=== PATIENT | male | born 1950 | race Caucasian/White ===

== ENCOUNTER 2020-03-21 08:39 | Outpatient (CLI) | payer MEDICARE, SELFPAY ==
[2020-03-21 09:08] LABS: Hematocrit 40.3 % (37.0-46.0); Hemoglobin 12.7 g/dL (12.4-15.3); Immature Platelet Fraction Pct 4.2 % (1.0-7.0); Mean Corpuscular HGB Conc 31.5 g/dL (32.0-36.0); Mean Corpuscular Hemoglobin 27.1 pg (27.0-31.0); Mean Corpuscular Volume 85.9 fL (78.0-102.0); Mean Platelet Volume 11.6 fl (8.7-11.0); Platelet Count Result 118 K/mm3 (150-420); Red Blood Count 4.69 M/mm3 (4.70-6.10)
[2020-03-21 09:15] LABS: White Blood Count 31.7 K/mm3 (4.8-10.8)
[2020-03-21 09:20] LABS: Add Urine Microscopic? YES; Appearance Urine Clear (Clear); Bilirubin Urine Negative (Negative); Blood Urine Negative (Negative); Color Urine Yellow (Yellow); Glucose Urine UA 2+ (Negative); Ketones Urine Negative (Negative); Leukocyte Esterase Ur Negative (Negative); Nitrate Urine Negative (Negative); Protein Urine 1+ (Negative); Specific Grav Ur 1.025 (1.010-1.020)
[2020-03-21 09:29] LABS: Bacteria Urine Trace /hpf; RBC Urine 0-2 /hpf (0-2); Squamous Epithelial Cell Urine Few /hpf (Few); WBC Urine 0-3 /hpf (0-3)
[2020-03-21 09:35] LABS: Hemoglobin A1C 7.8 % (<5.7)
[2020-03-21 10:03] LABS: Total Cells Counted 100
[2020-03-21 10:06] LABS: Band Neutrophils Percent 0 % (0-6); Basophils Absolute Manual 0.31 K/mm3 (0-0.1); Basophils Percent Manual 1 % (0-1); Eosinophils Absolute Manual 0.31 K/mm3 (0.02-0.5); Eosinophils Percent Manual 1 % (1-6); Lymphocytes Absolute Manual 25.04 K/mm3 (1.1-4.5); Lymphocytes Percent Manual 79 % (18-44); Monocytes Absolute Manual 0.63 K/mm3 (0.1-0.90); Monocytes Percent Manual 2 % (3-9); Neutrophils Absolute Manual 5.38 K/mm3 (1.3-6.7); Neutrophils Percent Manual 17 % (46-73); Platelet Estimate Decreased (Adequate); Smudge Cells MODERATE
[2020-03-21 10:08] LABS: Alanine Aminotransferase 38 U/L (16-63); Albumin Level 4.1 g/dL (3.4-5.0); Alkaline Phosphatase 80 U/L (46-116); Anion Gap 10 mmol/L (8-16); Aspartate Amino Transferase 31 U/L (15-37); Bilirubin,Total 0.4 mg/dL (0.00-1.00); Blood Urea Nitrogen 18 mg/dL (7-18); Calcium 9.1 mg/dL (8.5-10.1); Carbon Dioxide 27 mmol/L (21-32); Chloride 103 mmol/L (98-108); Estimated Glomerular Filt Rate > 60; Glucose 182 mg/dL (70-99); Osmolality Calculated 296 mOsm/kg (285-295); Potassium 4.4 mmol/L (3.5-5.1); Sodium 140 mmol/L (136-145); Total Protein 7.2 g/dL (6.4-8.2)
== END 2020-03-21 08:40 | disposition home or self-care (01) ==
PROVIDERS: PCP Internal Medicine; Visit Provider Internal Medicine Hematology & Oncology
DX: C91.10 Chronic lymphocytic leukemia of B-cell type not having achieved remission (principal); E11.65 Type 2 diabetes mellitus with hyperglycemia; I10 Essential (primary) hypertension; R31.9 Hematuria, unspecified
CPT/HCPCS: 36415; 80053; 81001; 83036; 85025; 85055; 87086

== ENCOUNTER 2020-10-10 08:37 | Outpatient (CLI) | payer MEDICARE, SELFPAY ==
[2020-10-10 08:51] LABS: Add Urine Microscopic? YES; Appearance Urine Clear (Clear); Bilirubin Urine Negative (Negative); Blood Urine Negative (Negative); Color Urine Yellow (Yellow); Glucose Urine UA Negative (Negative); Ketones Urine Negative (Negative); Leukocyte Esterase Ur Negative (Negative); Nitrate Urine Negative (Negative); Protein Urine Trace (Negative)
[2020-10-10 08:52] LABS: Hematocrit 40.2 % (37.0-46.0); Hemoglobin 12.7 g/dL (12.4-15.3); Immature Platelet Fraction Pct 5.7 % (1.0-7.0); Mean Corpuscular HGB Conc 31.6 g/dL (32.0-36.0); Mean Corpuscular Volume 85.5 fL (78.0-102.0); Mean Platelet Volume 11.1 fl (8.7-11.0); Platelet Count Result 126 K/mm3 (150-420); Red Cell Distribution Width 14.7 % (11.6-14.4)
[2020-10-10 09:14] LABS: Bacteria Urine Trace /hpf; RBC Urine 0-2 /hpf (0-2); Squamous Epithelial Cell Urine Rare /hpf (Few); WBC Urine 0-3 /hpf (0-3)
[2020-10-10 09:21] LABS: Creatinine Urine 138.91 mg/dL (40-278)
[2020-10-10 09:23] LABS: Microalbumin Urine Random 137.6 mg/L
[2020-10-10 09:29] LABS: White Blood Count 57.2 K/mm3 (4.8-10.8)
[2020-10-10 09:30] LABS: Band Neutrophils Percent 0 % (0-6); Basophils Percent Manual 0 % (0-1); Eosinophils Percent Manual 0 % (1-6); Lymphocytes Percent Manual 89 % (18-44); Monocytes Absolute Manual 1.71 K/mm3 (0.1-0.90); Monocytes Percent Manual 3 % (3-9); Neutrophils Absolute Manual 4.57 K/mm3 (1.3-6.7); Neutrophils Percent Manual 8 % (46-73); Platelet Estimate Decreased (Adequate); Smudge Cells PRESENT; Total Cells Counted 100
[2020-10-10 09:41] LABS: Alanine Aminotransferase 37 U/L (16-63); Alkaline Phosphatase 75 U/L (46-116); Anion Gap 8 mmol/L (8-16); Aspartate Amino Transferase 30 U/L (15-37); Bilirubin,Total 0.6 mg/dL (0.00-1.00); Blood Urea Nitrogen 22 mg/dL (7-18); Calcium 8.8 mg/dL (8.5-10.1); Carbon Dioxide 27 mmol/L (21-32); Chloride 102 mmol/L (98-108); Cholesterol 114 mg/dL (0-200); Creatine Kinase 85 U/L (39-308); Estimated Glomerular Filt Rate > 60; Glucose 97 mg/dL (70-99); HDL Direct 22 mg/dL (40-60); LDL Cholesterol Calculated 39 mg/dL (<130); Lactate Dehydrogenase 143 U/L (85-227); Osmolality Calculated 287 mOsm/kg (285-295); Sodium 137 mmol/L (136-145); Total Protein 7.2 g/dL (6.4-8.2); Triglycerides 266 mg/dL (0-150)
[2020-10-10 10:06] LABS: Prostate Specific Antigen 0.6 ng/mL (< OR = 4.0)
== END 2020-10-10 08:38 | disposition home or self-care (01) ==
LOC: CHSLAB 08:39
PROVIDERS: PCP Internal Medicine; Visit Provider Internal Medicine Hematology & Oncology
DX: C91.10 Chronic lymphocytic leukemia of B-cell type not having achieved remission (principal); E11.65 Type 2 diabetes mellitus with hyperglycemia; I10 Essential (primary) hypertension; E78.2 Mixed hyperlipidemia; Z12.5 Encounter for screening for malignant neoplasm of prostate
CPT/HCPCS: 36415; 80053; 80061; 81001; 82043; 82550; 83036; 83615; 84153; 85025; 85055; G0103

== ENCOUNTER 2021-06-13 18:24 | Inpatient (IN) | payer MEDICARE, SELFPAY ==
[2021-06-13] VITALS (8 sets, daily range): BP systolic 114–136; BP diastolic 41–61; PULSE 72–81; RESP 20–24; TEMP 36.7–38.9; O2SAT 82–97
--- NOTE | ~2021-06-13 | XR_ITS ---
EXAMINATION: XR chest ET placement EXAM DATE: 06/17/2021 22:12 INDICATION: Endotracheal tube placement endotracheal tube placement. TECHNIQUE: Portable AP frontal chest x-ray was obtained. Comparison is made to prior examination from 06/16/2021 FINDINGS: There is an endotracheal tube about 3 or 4 cm above the niko but mildly eccentrically pos itioned over the tracheal air column; recommend confirming endotracheal versus esophageal position cl inically. Gas was present in the stomach on prior study, there does appear to be more on this image. I discussed this with Brendan Anne MD at 06/17/2021 22:21 LAUNDRY ROOM ATTENDANT. Diffuse airspace disease again noted, lungs appear better aerated but this could be technical. There are sternotomy wires. No pneumothorax. The cardiomediastinal silhouette is prominent but magnified on this AP technique. IMPRESSION: 1. Recommend confirming endotracheal versus esophageal intubation clinically. 2. Diffuse pneumonia Reviewed, dictated and finalized at location A. DRY ROOM ATTENDANT
--- NOTE | ~2021-06-13 | XR_ITS ---
EXAMINATION: XR chest ET placement EXAM DATE: 06/17/2021 23:03 INDICATION: ET tube replaced. TECHNIQUE: Portable AP frontal chest x-ray was obtained. Comparison is made to prior examination from earlier same day. FINDINGS: Endotracheal tube at the thoracic inlet. I called emergency room and discussed position wit h nurse, reportedly they are attempting again. Tracheal air column narrowed or less well-defined on this image. Sternotomy wires. Diffuse airspace d isease again noted. No pneumothorax. IMPRESSION: Abnormally positioned endotracheal tube at thoracic inlet. Reviewed, dictated and finalized at location A. HEADER
--- NOTE | ~2021-06-13 | CT_ITS ---
EXAMINATION:CT diagnostic chest wo con DATE: 06/13/2021 19:36 INDICATION: Shortness of breath. TECHNIQUE: Computed tomography (CT) of the chest was performed without intravenous contrast. Automate d exposure control and iterative reconstruction technique were employed. The dose-length product (DLP ) was 526.04 mGy-cm. COMPARISON: Chest CT 03/04/2019 FINDINGS: There are patchy groundglass opacities and crazy paving in all lobes. There is a trace left pleural effusion. The heart size is normal. There are coronary artery calcifications. There are kasper ges of coronary artery bypass grafting. Main pulmonary artery is enlarged, consistent with pulmonary arterial hypertension. Calcified left hilar and mediastinal lymph nodes are consistent with old granu lomatous disease. There is mild mediastinal lymphadenopathy, likely reactive. The liver demonstrates hypertrophy of left lateral segment. There are changes of cholecystectomy. There is moderate splenome violette. There is mild periportal lymphadenopathy. There are bridging endplate osteophytes at multiple l evels in the spine, consistent with diffuse idiopathic skeletal hyperostosis (DISH). IMPRESSION: 1. Diffuse lung disease, consistent with COVID-19 pneumonia. 2. Chronic moderate splenomegaly. 3. Hypertrophy of left lateral segment of the liver. This finding may be a normal variant or may be s een with cirrhosis. 4. Mild mediastinal and periportal lymphadenopathy, likely reactive. Reviewed, dictated and finalized at location A. RNED GOODS INSPECTOR IMPRESSION: 1. Diffuse lung disease, consistent with COVID-19 pneumonia. 2. Chronic moderate splenomegaly. 3. Hypertrophy of left lateral segment of the liver. This finding may be a norm al variant or may be seen with cirrhosis. 4. Mild mediastinal and periportal lymphadenopathy, likely reactive.
--- NOTE | ~2021-06-13 | CT_ITS ---
EXAMINATION: CTA chest PE protocol DATE: 06/16/2021 12:42 INDICATION: Shortness of breath. TECHNIQUE: Computed tomography angiography (CTA) of the chest was performed with 100 mL Omnipaque-350 intravenous contrast timed to evaluate the pulmonary arteries. Coronal maximum intensity projection 3D-reconstructions were created by the technologist. Automated exposure control and iterative reconst ruction technique were employed. The dose-length product was 528.39 mGy-cm. COMPARISON: Chest CT 06/13/2021 FINDINGS: There are patchy groundglass opacities and crazy paving in the upper lobes and right middle lobe. There are extensive groundglass opacities, crazy paving, and small airspace opacities in the l ower lobes. Calcified left lung nodules and calcified left hilar lymph nodes are consistent with old granulomatous disease. There are trace pleural effusions. There is left atrial enlargement of the hea rt. There are coronary artery calcifications. There are calcifications of the aortic valve. No perica rdial effusion. There are changes of cholecystectomy. Calcifications in the spleen are consistent wit h old granulomatous disease. There is mild mediastinal, right hilar, and periportal lymphadenopathy. There is moderate splenomegaly. There is hypertrophy of left hepatic lobe. There are bridging endplat e osteophytes at multiple levels in the spine, consistent with diffuse idiopathic skeletal hyperostos is (DISH). IMPRESSION: 1. No pulmonary embolus. 2. Diffuse lung disease with worsening from 06/13/2021, consistent with COVID-19 pneumonia. 3. Chronic moderate splenomegaly. 4. Hypertrophy of left lateral segment of the liver. This finding may be a normal variant or may be s een with cirrhosis. 5. Mild mediastinal, right hilar, and periportal lymphadenopathy, likely reactive. Reviewed, dictated and finalized at location A. CAR MAKE READY MECHANIC IMPRESSION: 1. No pulmonary embolus. 2. Diffuse lung disease with worsening from 06/13/2021, consistent with COVID-19 pneumonia. 3. Chronic moderate splenomegaly. 4. Hypertrophy of left lateral segment of the liver. This finding may be a norm al variant or may be seen with cirrhosis. 5. Mild mediastinal, right hilar, and periportal lymphadenopathy, likely reacti ve.
--- NOTE | ~2021-06-13 | XR_ITS ---
EXAMINATION: XR chest 1V portable DATE: 06/16/2021 01:26 INDICATION: Increasing shortness of breath. COVID-19 positive. TECHNIQUE: A single frontal view of the chest was obtained. COMPARISON: Chest CT 06/13/2021, chest 2 views 01/14/2008 FINDINGS: There are airspace opacities throughout the lungs bilaterally. No pleural effusion or pneum othorax. The heart size is normal. Median sternotomy wires and mediastinal surgical clips are seen, l ikely from prior coronary artery bypass grafting. Surgical clips in the right upper quadrant are like ly from cholecystectomy. IMPRESSION: 1. Diffuse lung disease, consistent with COVID-19 pneumonia. Reviewed, dictated and finalized at location A. APPLICATION ENGINEER
--- NOTE | 2021-06-13 18:40 | ECG_ITS ---
Measurements Intervals [place] Rate: 81 P: 19 CO: 221 QRS: 1 QRSD: 97 T: 70 QT: 359 QTc: 418 Interpretive Statements SINUS RHYTHM WITH FIRST DEGREE AV BLOCK LEFT VENTRICULAR HYPERTROPHY WITH ST-T CHANGE INFERIOR INFARCT, AGE INDETERMINATE BASELINE ARTIFACT- I, II, III, AVR, AVL, AVF, V1-V3 ABNORMAL ECG Electronically Signed On 06-13-2021 20:33:26 RETURNER by Unruly Alvarez D.O.
--- NOTE | 2021-06-13 18:45 | PC.NURSE ---
Pt placed on 3L o2 per NC.
[2021-06-13] MEDS: SODIUM CHLORIDE 0.9% IV 1,000 ML 150 ML IV CONT (18:57)
[2021-06-13] MEDS: DEXAMETHASONE SOD PHOS INJ 4 MG/ML VIAL IV PUSH (18:59)
[2021-06-13] MEDS: ACETAMINOPHEN 500 MG TABLET 1000 MG PO (19:02)
[2021-06-13] MEDS: UMECLIDINIUM BROMIDE 62.5 MCG ELLIPTA 1 PUFF INHALATION (19:03)
[2021-06-13] MEDS: ALBUTEROL SULFATE (*SP) INHALER 2 PUFF INHALATION (19:04)
[2021-06-13 19:26] LABS: Base Excess ABG -0.2 mmol/L (0-2); HCO3 ABG 21.8 mmol/L (23-29); Oxygen Content ABG 15.8 %vol (16.0-22.0); Oxygen Saturation ABG 94.1 % (95-97); Oxyhemoglobin 93.9 % (94-100); PCO2 ABG 27.9 mmHg (35-45); PO2 ABG 69.8 mmHg (75-85); Total Hemoglobin 11.9 g/dL (12.0-18.0); pH ABG 7.51 (7.35-7.45)
[2021-06-13 19:27] LABS: Device ROOM AIR; Modified Allen's Test Pass; Site Drawn RIGHT RADIAL
[2021-06-13 19:28] LABS: Hematocrit 36.2 % (37.0-46.0); Hemoglobin 11.2 g/dL (12.4-15.3); Immature Platelet Fraction Pct 5.9 % (1.0-7.0); Mean Corpuscular HGB Conc 30.9 g/dL (32.0-36.0); Mean Corpuscular Hemoglobin 25.2 pg (27.0-31.0); Mean Corpuscular Volume 81.3 fL (78.0-102.0); Platelet Count Result 123 K/mm3 (150-420); Red Blood Count 4.45 M/mm3 (4.70-6.10); Red Cell Distribution Width 15.6 % (11.6-14.4)
[2021-06-13 19:45] LABS: Alanine Aminotransferase 37 U/L (16-63); Albumin Level 2.8 g/dL (3.4-5.0); Alkaline Phosphatase 60 U/L (46-116); Anion Gap 11 mmol/L (8-16); Aspartate Amino Transferase 75 U/L (15-37); Bilirubin,Total 0.7 mg/dL (0.00-1.00); Blood Urea Nitrogen 23 mg/dL (7-18); Calcium 7.7 mg/dL (8.5-10.1); Carbon Dioxide 24 mmol/L (21-32); Chloride 96 mmol/L (98-108); Estimated CRCL calculation 54 ml/min; Estimated Glomerular Filt Rate > 60; Glucose 90 mg/dL (70-99); Osmolality Calculated 275 mOsm/kg (285-295); Potassium 4.5 mmol/L (3.5-5.1); Sodium 131 mmol/L (136-145); Total Protein 6.5 g/dL (6.4-8.2); Troponin I 20.4 ng/L (0.00-60.4)
[2021-06-13 20:04] LABS: Atypical Lymphocytes Present; Band Neutrophils Percent 0 % (0-6); Basophils Percent Manual 0 % (0-1); Eosinophils Percent Manual 0 % (1-6); Lymphocytes Absolute Manual 71.38 K/mm3 (1.1-4.5); Lymphocytes Percent Manual 86 % (18-44); Monocytes Absolute Manual 1.66 K/mm3 (0.1-0.90); Monocytes Percent Manual 2 % (3-9); Neutrophils Absolute Manual 9.96 K/mm3 (1.3-6.7); Neutrophils Percent Manual 12 % (46-73); Smudge Cells MANY; Total Cells Counted 100
[2021-06-13 20:05] LABS: Platelet Estimate Adequate (Adequate)
[2021-06-13] MEDS: AZITHROMYCIN 250 MG TABLET 500 MG PO (20:17)
--- NOTE | 2021-06-13 20:47 | ED.SOB ---
HPI - SOB/Dyspnea General Chief Complaint: Shortness of Breath/Dyspnea Stated Complaint: shortess of breath post COVID Source: patient and RN notes reviewed Mode of arrival: ambulatory Limitations: no limitations History of Present Illness MD elicited complaint: shortness of breath Pertinent past history: other (recent covid-19 diagnosis) Onset (ago): day(s) (1) Context: other (pt is being worked up for Leukemia) Timing: constant Severity: moderate Exacerbating factors: nothing Relieving factors: oxygen and bronchodilators Known history of: diabetes Associated symptoms: fever Treatment prior to arrival: none Related Data Home Medications Medication Instructions Recorded Confirmed insulin detemir U-100 [Levemir 130 unit SUBCUT HS 06/13/21 06/13/21 U-100 Insulin] insulin lispro See Rx Instructions .ROUTE .COMPLEX 06/13/21 06/13/21 metformin 500 mg PO DAILY 06/13/21 06/13/21 metoprolol tartrate 50 mg PO DAILY 06/13/21 06/13/21 pravastatin 20 mg PO DAILY 06/13/21 06/13/21 sildenafil (pulm.hypertension) 20 mg PO DAILY 06/13/21 06/13/21 Allergies Allergy/AdvReac Type Severity Reaction Status Date / Time No Known Allergies Allergy Verified 06/13/21 18:51 Review of Systems Review of Systems: All systems reviewed & are unremarkable except as noted in HPI and below Respiratory: Respiratory: Reports dyspnea PMFSH Past Medical History Medical History Community acquired pneumonia Diabetes mellitus Leukemia Exam Const: General: no acute distress Nutritional Appearance: well nourished Orientation/consciousness: patient oriented x3 HENMT: Head: normal to inspection Ears: external ears normal and TM's normal bilaterally General nose exam: Normal external nose present and Normal nares present Face and sinus: normal facial exam Mouth: Yes moist mucous membranes Eyes: Conjunctivae: conjunctivae normal Pupils: Equal, round and reactive pupils present EOM: EOMs intact bilaterally Neck: Neck: normal visual inspection and no lymphadenopathy Chest: Chest palpation & inspection: normal inspection of the chest Resp: Effort & Inspection: labored, retractions, tachypneic and uses accessory muscles Auscultation: crackles Cardio: Rate: regular rate Rhythm: regular rhythm GI: GI Palp: Yes Soft to palpation and No Tenderness to palpation present (GI) Percussion: Yes normal to percussion : General: Yes no CVA tenderness Male General Exam: Yes normal external exam Testes: Testes normal Back/Spine/Pelvis: Back: no CVA tenderness Skin: General skin exam: normal color Neuro: General: patient oriented x3, moves all extremities, no meningeal signs, no focal motor deficits and CN's II-XI intact bilaterally Extrem: General: normal to inspection and no pedal edema Psych: Mental Status: mental status grossly normal Affect: normal affect Attitude: cooperative Thought content: Yes Normal thought content present Course Course Emergency Course: Pt sxs were improved. Labs and imaging were d/w the patient. He refused transfer to higher level of care ( with his Leukemia and DM) and wanted to be admitted here. Reevaluation(s) Reevaluation #1: mild resp distress only. Date: 06/13/21 Time: 19:23 Vital Signs Vital signs: Vital Signs Temperature 38.9 C H 06/13/21 18:39 Pulse Rate 79 06/13/21 18:39 Respiratory Rate 22 H 06/13/21 18:39 Blood Pressure 136/55 L 06/13/21 18:39 Pulse Oximetry 82 L 06/13/21 18:39 Temperature 37.1 C 06/13/21 21:16 Pulse Rate 74 06/13/21 21:16 Respiratory Rate 22 H 06/13/21 21:16 Blood Pressure 117/41 L 06/13/21 21:16 Pulse Oximetry 95 06/13/21 21:16 MDM - SOB/Dyspnea Lab Data Result diagrams: 06/13/21 19:22 06/13/21 19:22 Labs: Lab Results 06/13/21 06/13/21 06/13/21 Range/Units 19:22 19:22 19:22 WBC 83.0 H* (4.8-10.8) K/mm3 RBC 4.45 L (4.70-6.10) M/mm
--- NOTE | 2021-06-13 20:53 | PC.NURSE ---
Patient states seeing Dr. Karimi at [facility] for r/o leukemia. suggested transfer for further observation from a Hem-Onc physician but patient declined at this time at requested to be admitted here for treatment.
--- NOTE | 2021-06-13 22:00 | ADMGEN ---
This patient, Manuel Kumar, was admitted to 2nd Floor Room 208-2. Patient oriented to hospital policies and general routines including ID bracelet, bed and alarms, visiting hours, pain management, procedures, bathroom and other care routines, personal items, smoking policy, room service/diet, and visiting hours. Information on how to activate the Rapid Response Team has been discussed. Patient are encouraged to report perceived risks to care and to ask questions if they do not understand what they are told or what they should do.
[2021-06-14] VITALS (8 sets, daily range): BP systolic 108–124; BP diastolic 53–74; PULSE 74–80; RESP 18–20; TEMP 35.9–36.4; O2SAT 90–95; BMI 27.2
[2021-06-14] MEDS: SODIUM CHLORIDE 0.9% IV 1,000 ML 75 ML IV CONT (00:45)
[2021-06-14] MEDS: DEXAMETHASONE SOD PHOS INJ 4 MG/ML VIAL IV PUSH ×4 (00:45→17:13)
[2021-06-14] MEDS: ALBUTEROL SULFATE (*SP) INHALER 2 PUFF INHALATION ×5 (05:31→20:24)
[2021-06-14 06:18] LABS: Hematocrit 35.4 % (37.0-46.0); Mean Corpuscular HGB Conc 31.1 g/dL (32.0-36.0); Mean Corpuscular Hemoglobin 25.6 pg (27.0-31.0); Mean Corpuscular Volume 82.3 fL (78.0-102.0); Mean Platelet Volume 10.8 fl (8.7-11.0); Platelet Count Result 101 K/mm3 (150-420); Red Cell Distribution Width 15.7 % (11.6-14.4)
[2021-06-14 06:20] LABS: Add Urine Microscopic? YES; Appearance Urine Clear (Clear); Bilirubin Urine Negative (Negative); Blood Urine Negative (Negative); Color Urine Light Yellow (Yellow); Glucose Urine UA 1+ (Negative); Ketones Urine 1+ (Negative); Leukocyte Esterase Ur Negative (Negative); Nitrate Urine Negative (Negative); Protein Urine Trace (Negative); Specific Grav Ur 1.025 (1.010-1.020); Urobilinogen Urine 0.2 mg/dL (0.2-1.0)
[2021-06-14 06:25] LABS: Bacteria Urine Trace /hpf; RBC Urine None seen /hpf (0-2); WBC Urine None seen /hpf (0-3)
[2021-06-14 06:36] LABS: White Blood Count 65.5 K/mm3 (4.8-10.8)
[2021-06-14 06:39] LABS: Alanine Aminotransferase 34 U/L (16-63); Albumin Level 2.5 g/dL (3.4-5.0); Alkaline Phosphatase 56 U/L (46-116); Anion Gap 12 mmol/L (8-16); Aspartate Amino Transferase 62 U/L (15-37); Bilirubin,Total 0.6 mg/dL (0.00-1.00); Blood Urea Nitrogen 23 mg/dL (7-18); Calcium 7.7 mg/dL (8.5-10.1); Carbon Dioxide 22 mmol/L (21-32); Chloride 98 mmol/L (98-108); Estimated CRCL calculation 54 ml/min; Estimated Glomerular Filt Rate > 60; Glucose 249 mg/dL (70-99); Osmolality Calculated 285 mOsm/kg (285-295); Potassium 4.8 mmol/L (3.5-5.1); Sodium 132 mmol/L (136-145); Total Protein 6.1 g/dL (6.4-8.2)
[2021-06-14 06:47] LABS: Band Neutrophils Percent 0 % (0-6); Lymphocytes Absolute Manual 55.67 K/mm3 (1.1-4.5); Lymphocytes Percent Manual 85 % (18-44); Monocytes Absolute Manual 1.31 K/mm3 (0.1-0.90); Monocytes Percent Manual 2 % (3-9); Neutrophils Absolute Manual 8.51 K/mm3 (1.3-6.7); Neutrophils Percent Manual 13 % (46-73); Smudge Cells MODERATE; Total Cells Counted 100
[2021-06-14 08:05] LABS: Glucose Point of Care 282 mg/dl (65-105)
[2021-06-14] MEDS: PRAVASTATIN SODIUM 20 MG TABLET PO (09:06)
[2021-06-14] MEDS: metFORMIN HCL XR 500 MG TAB.SR.24H PO (09:06)
[2021-06-14] MEDS: METOPROLOL TARTRATE 50 MG TAB PO (09:06)
[2021-06-14] MEDS: DOCUSATE SODIUM 100 MG CAPSULE PO ×2 (09:06→17:11)
[2021-06-14] MEDS: UMECLIDINIUM BROMIDE 62.5 MCG ELLIPTA 1 PUFF INHALATION (09:07)
--- NOTE | 2021-06-14 10:28 | PM.IMHP ---
H&P: HPI History of Present Illness Date/Time: 06/14/21 10:28 this is a 70-year-old male who presented to emergency department with complaints of shortness of breath, fatigue, fever, productive cough and Covid positive. Patient has a past medical history of CAP, diabetes and leukemia. 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 At that time he bought an at home test for Covid which was positive. Patient notes that he stayed at home and cared for himself with [id number] medication. Patient notes that his situation did not improve he notes that his shortness of breath worsened and at that time he came to our emergency department. Patient has not been vaccinated. WBCs 83.0 hemoglobin 11.2 hematocrit 36.2 platelets 123, pH 7.51 CO2 27.9 O2 69.8 bicarb 21.8, sodium 131 potassium 4.5 BUN 23 creatinine 1.17 glucose 90, lactic acid 2.0, AST 75 ALT 37 total bili 0.7, troponin 20.4, urine with protein glucose ketone and bacteria, chest x-ray indicates COVID pneumonia EKG sinus rhythm with first-degree AV block heart rate of 81. The patient denies , CP, palpitation, extremity numbness, lightheadedness, dizziness, constipation, diarrhea, chills, or fever. Chief Complaint: Shortness of breath, fatigue, uncontrollable productive cough, fever Review of Systems Review of Systems: A 14 organ system Review of Systems was performed and pertinent positives included in the HPI, otherwise remaining ROS is negative. [facility] Past Medical History Medical History Community acquired pneumonia Diabetes mellitus Leukemia Family History Family History (Updated 06/14/21 @ 02:54 by Alma Steele RN) Mother Heart disease Cerebrovascular accident Father Heart disease Social History Social History Smoking status: Never smoker Second hand tobacco smoke exposure: No Alcohol intake: never Substance use: never Substance use type: does not use Spiritual care concerns: No Meds Home Medications and Allergies Home Medications Medication Instructions Recorded Confirmed Type insulin detemir U-100 [Levemir 130 unit SUBCUT HS 06/13/21 06/13/21 History U-100 Insulin] insulin lispro See Rx Instructions .ROUTE .COMPLEX 06/13/21 06/13/21 History metformin 500 mg PO DAILY 06/13/21 06/13/21 History metoprolol tartrate 50 mg PO DAILY 06/13/21 06/13/21 History pravastatin 20 mg PO DAILY 06/13/21 06/13/21 History sildenafil (pulm.hypertension) 20 mg PO DAILY 06/13/21 06/13/21 History Allergies Allergy/AdvReac Type Severity Reaction Status Date / Time No Known Allergies Allergy Verified 06/13/21 18:51 Vital Signs Vital Signs - 24 hr 06/13/21 18:39 06/13/21 19:04 06/13/21 19:06 Temperature 102.0 F H Pulse Rate 79 74 81 Respiratory Rate 22 H 22 H 20 Blood Pressure 136/55 L Pulse Oximetry 82 L 95 95 06/13/21 20:16 06/13/21 20:45 06/13/21 21:16 Temperature 99.8 F H 99.2 F 98.7 F Pulse Rate 72 74 Respiratory Rate 24 H 22 H Blood Pressure 114/56 L 117/41 L Pulse Oximetry 97 95 06/13/21 22:00 06/14/21 00:00 06/14/21 04:00 Temperature 98.1 F 97.6 F 97.2 F L Pulse Rate 72 74 74 Respiratory Rate 22 H 18 18 Blood Pressure 123/61 116/57 L 120/74 Pulse Oximetry 97 95 95 06/14/21 08:00 06/14/21 09:06 Temperature 97.0 F L Pulse Rate 78 78 Respiratory Rate 20 Blood Pressure 124/53 L Pulse Oximetry 91 Exam Narrative: GENERAL: This is a well-nourished, well-developed patient, in no apparent distress. HEAD: normocephalic, atraumatic. EYES: PERRL. Sclera clear/white. Vision is grossly intact. EARS: External ears normal, auditory canals clear and without drainage, TMs normal without perforation. Hearing grossly intact. NOSE: External nose normal with no obvious nasal discharge, nares without redness, no rhinorrhea. TH
[2021-06-14 11:31] LABS: Glucose Point of Care 355 mg/dl (65-105)
[2021-06-14] MEDS: BENZONATATE 100 MG CAPSULE 200 MG PO ×2 (11:59→17:11)
[2021-06-14] MEDS: guaiFENesin 12 HR 600 MG TABCR 1200 MG PO ×2 (12:00→20:23)
[2021-06-14 16:47] LABS: Glucose Point of Care 320 mg/dl (65-105)
[2021-06-14] MEDS: INSULIN DETEMIR 100 UNITS/ML 130 UNITS SUB-Q (20:42)
[2021-06-14 22:08] LABS: Glucose Point of Care 331 mg/dl (65-105)
[2021-06-15] VITALS: BP 110/59; PULSE 80; RESP 18; TEMP 36.6; O2SAT 93
[2021-06-15] MEDS: DEXAMETHASONE SOD PHOS INJ 4 MG/ML VIAL IV PUSH (00:23)
[2021-06-15 01:41] LABS: Alanine Aminotransferase 40 U/L (16-63); Estimated CRCL calculation 41 ml/min; Estimated Glomerular Filt Rate 46; Prothrombin Time 10.7 Seconds (9.50-12.10)
[2021-06-15] MEDS: REMDESIVIR 200 MG/NS 250 ML 200 MG/250 ML BAG 250 MG IVPB (02:50)
[2021-06-15 05:26] VITALS: O2SAT 87
[2021-06-15 05:38] LABS: Hematocrit 38.4 % (37.0-46.0); Hemoglobin 11.4 g/dL (12.4-15.3); Mean Corpuscular HGB Conc 29.7 g/dL (32.0-36.0); Mean Corpuscular Hemoglobin 24.8 pg (27.0-31.0); Mean Corpuscular Volume 83.5 fL (78.0-102.0); Mean Platelet Volume 10.1 fl (8.7-11.0); Platelet Count Result 147 K/mm3 (150-420); Red Cell Distribution Width 15.8 % (11.6-14.4)
[2021-06-15 05:51] LABS: White Blood Count 106.3 K/mm3 (4.8-10.8)
[2021-06-15 05:53] LABS: Alanine Aminotransferase 35 U/L (16-63); Albumin Level 2.7 g/dL (3.4-5.0); Alkaline Phosphatase 74 U/L (46-116); Anion Gap 12 mmol/L (8-16); Aspartate Amino Transferase 63 U/L (15-37); Bilirubin,Total 0.5 mg/dL (0.00-1.00); Blood Urea Nitrogen 31 mg/dL (7-18); Carbon Dioxide 23 mmol/L (21-32); Chloride 98 mmol/L (98-108); Estimated CRCL calculation 52 ml/min; Estimated Glomerular Filt Rate > 60; Glucose 315 mg/dL (70-99); Magnesium 2.7 mg/dL (1.8-2.4); Osmolality Calculated 294 mOsm/kg (285-295); Potassium 5.3 mmol/L (3.5-5.1); Sodium 133 mmol/L (136-145); Total Protein 6.6 g/dL (6.4-8.2)
[2021-06-15 08:00] VITALS: BP 134/71; PULSE 79; RESP 20; TEMP 36.3; O2SAT 90
[2021-06-15 08:15] LABS: Glucose Point of Care 312 mg/dl (65-105)
[2021-06-15] MEDS: ALBUTEROL SULFATE (*SP) INHALER 2 PUFF INHALATION ×4 (09:30→21:52)
[2021-06-15 09:32] VITALS: PULSE 79
[2021-06-15] MEDS: METOPROLOL TARTRATE 50 MG TAB PO (09:32)
[2021-06-15] MEDS: DOCUSATE SODIUM 100 MG CAPSULE PO ×2 (09:32→17:54)
[2021-06-15] MEDS: BENZONATATE 100 MG CAPSULE 200 MG PO ×3 (09:33→17:54)
[2021-06-15] MEDS: PRAVASTATIN SODIUM 20 MG TABLET PO (09:33)
[2021-06-15] MEDS: UMECLIDINIUM BROMIDE 62.5 MCG ELLIPTA 1 PUFF INHALATION (09:33)
[2021-06-15] MEDS: guaiFENesin 12 HR 600 MG TABCR 1200 MG PO ×2 (09:33→21:54)
[2021-06-15 12:16] LABS: Glucose Point of Care 364 mg/dl (65-105)
--- NOTE | 2021-06-15 15:45 | PM.IMPN ---
Progress Note: A&P Assessment and Plan (1) COVID-19: Code(s): U07.1 - COVID-19 <JULIANO Jasso - Last Filed: 06/15/21 16:01> Status: Acute <Rizwan Rodgers JULIANO Aponte - Last Filed: 06/15/21 16:01> Assessment and Plan: Continue remdesivir with dexamethasone inhalers Tessalon Perles in aifenesin X-ray indicate Covid pneumonia Remain on isolation Patient has not been vaccinated Continue oxygen supplement 06/15/2021 4.5 L/min NC with SpO2 90-94%, contacted his oncologist for recommendations. <JULIANO Jasso - Last Filed: 06/15/21 16:01> (2) Diabetes mellitus: Code(s): E11.9 - Type 2 diabetes mellitus without complications <JULIANO Jasso - Last Filed: 06/15/21 16:01> Status: Acute <JULIANO Jasso - Last Filed: 06/15/21 16:01> Assessment and Plan: Blood sugar less than 300 Continue Accu-Chek sliding scale and hypoglycemic protocol Continue diabetic diet Will adjust medication as needed 06/15/2021 elevated 300, Pt taking Decadron <JULIANO Jasso - Last Filed: 06/15/21 16:01> (3) Community acquired pneumonia: Qualifiers: Laterality: unspecified laterality Qualified Code(s): J18.9 - Pneumonia, unspecified organism <JULIANO Jasso - Last Filed: 06/15/21 16:01> Code(s): J18.9 - Pneumonia, unspecified organism <JULIANO Jasso - Last Filed: 06/15/21 16:01> Status: Acute <JULIANO Jasso - Last Filed: 06/15/21 16:01> Assessment and Plan: Continue azithromycin and Rocephin day 1 WBCs 83> 65 more than likely due to leukemia Blood culture pending 06/15/2021 PCT was obtained as a send out lab, currently will continue with Azithromycin and Rocephin <JULIANO Jasso - Last Filed: 06/15/21 16:01> (4) Leukemia: Qualifiers: Leukemia Active/Remission status: without remission Leukemia type: unspecified Qualified Code(s): C95.90 - Leukemia, unspecified not having achieved remission <JULIANO Jasso - Last Filed: 06/15/21 16:01> Code(s): C95.90 - Leukemia, unspecified not having achieved remission <JULIANO Jasso - Last Filed: 06/15/21 16:01> Status: Acute <JULIANO Jasso - Last Filed: 06/15/21 16:01> Assessment and Plan: Follow-up with oncologist <JULIANO Jasso - Last Filed: 06/15/21 16:01> Additional Plan 70-year-old male with CAD, CLL was admitted for acute hypoxic respiratory failure secondary to COVID pneumonia. He was on Decadron and remdesivir. He developed worsening shortness of breath following which his FiO2 was increased to a non-rebreather mask. Will continue to monitor his respiratory status. Would attempt to transfer him to a facility with ICU /ventilatory support. <Fred Wiseman MD - Last Filed: 06/15/21 22:59> Subjective Date/time seen: 06/15/21 15:45 Pt states he has a difficult time getting comfortable. He states his breathing is not any better and it is not any worse either. He talks in 3-4 word sentences. I rounding there was concern for his CLL. I called his Oncologist and reviewed lab results for the last 3 blood draws. There was no recommendation to transfer as the Pt Neutrophiles were in good numbers given his CLL. Monoclonal Ab was suggested but that is saved for outpatients only. Pt is not having any CP, fevers, chills, abdominal issues. He does have a decreased appetite. <JULIANO Jasso - Last Filed: 06/15/21 16:01> Review of Systems Constitutional: Constitutional: Denies body ache(s), Denies chills, Denies fever(s) and Reports lethargy <JULIANO Jasso - Last Filed: 06/15/21 16:01> Cardiovascular: Cardiovascular: Reports no additional cardiovascular complaints, Denies chest pain, Denies chest pain at rest and Denies chest pain with activity <Rizwan Aponte APN-Ronen - Last Filed: 06/15/21 16:01>
[2021-06-15 16:00] VITALS: BP 111/53; PULSE 75; RESP 20; TEMP 34.8; O2SAT 98
[2021-06-15 17:06] LABS: Glucose Point of Care 282 mg/dl (65-105)
[2021-06-15 21:09] LABS: Glucose Point of Care 259 mg/dl (65-105)
[2021-06-15] MEDS: REMDESIVIR 100 MG/NS 250 ML 100 MG/250 ML BAG 250 MG IVPB (21:54)
[2021-06-15] MEDS: INSULIN DETEMIR 100 UNITS/ML 130 UNITS SUB-Q (21:55)
[2021-06-16] VITALS: BP 132/69; PULSE 90; RESP 22; TEMP 36.1; O2SAT 87
--- NOTE | 2021-06-16 | PC.NURSE ---
Patient's nurse stated that patient's O2 sats were in the 80's, and she was concerned about his condition. Patient was complaining about his shortness of breath, and asked to speak to the Dr. Dr. Wiseman was called, and he stated that he would come up to see the patient. He asked for Arterial Blood Gases to be drawn, and for a chest X-ray to be taken. Those orders were placed. After Dr. Wiseman assessed the patient, he asked for a one time dose of Lorazepam, 0.5 mg PO to be given. He talked to the patient about taking slow breaths. This order was placed, and the pharmacy at [facility] was contacted. The pharmacy stated that there was a glitch in their computer system, and there would be a 2 hour delay in receiving the order. The pharmacist suggested we use the override to pull the medication. The nurse was then able to give the patient the medication. Patient's O2 sats did increase to the 90's after awhile.
[2021-06-16 00:25] LABS: PCO2 ABG 29.7 mmHg (35-45); pH ABG 7.45 (7.35-7.45)
[2021-06-16 00:26] LABS: Base Excess ABG -2.6 mmol/L (0-2); HCO3 ABG 20.3 mmol/L (23-29); Oxygen Saturation ABG 90.2 % (95-97); PO2 ABG 58.6 mmHg (75-85); Total Hemoglobin 12.5 g/dL (12.0-18.0)
[2021-06-16 00:27] LABS: Device NON-REBREATHER MASK; Modified Allen's Test Pass; Site Drawn RIGHT RADIAL
[2021-06-16 00:32] LABS: Oxygen Content ABG 15.8 %vol (16.0-22.0); Oxyhemoglobin 89 % (94-100)
[2021-06-16] MEDS: LORazepam (*CRX) 0.5 MG TABLET PO (01:26)
[2021-06-16] MEDS: LORazepam (*CRX) 0.5 MG TABLET (01:42)
[2021-06-16 05:23] VITALS: O2SAT 96
[2021-06-16 05:23] LABS: Hematocrit 40.7 % (37.0-46.0); Hemoglobin 12.2 g/dL (12.4-15.3); Mean Corpuscular Volume 83.4 fL (78.0-102.0); Mean Platelet Volume 10.3 fl (8.7-11.0); Platelet Count Result 165 K/mm3 (150-420); Red Blood Count 4.88 M/mm3 (4.70-6.10); Red Cell Distribution Width 15.9 % (11.6-14.4)
[2021-06-16 05:30] LABS: White Blood Count 118.6 K/mm3 (4.8-10.8)
[2021-06-16 05:32] LABS: INR 1.1; Prothrombin Time 12.1 Seconds (9.50-12.10)
--- NOTE | 2021-06-16 05:35 | PC.NURSE ---
Laboratory called with a critical lab result of 118.6 WBC. This is up slightly from previous level of 106.3. Patient has leukemia. Dr. Wiseman will be notified at 0600.
[2021-06-16 05:41] LABS: Alanine Aminotransferase 46 U/L (16-63); Albumin Level 3.1 g/dL (3.4-5.0); Alkaline Phosphatase 140 U/L (46-116); Anion Gap 14 mmol/L (8-16); Aspartate Amino Transferase 71 U/L (15-37); Bilirubin,Total 0.5 mg/dL (0.00-1.00); Blood Urea Nitrogen 30 mg/dL (7-18); Calcium 8.2 mg/dL (8.5-10.1); Carbon Dioxide 24 mmol/L (21-32); Chloride 98 mmol/L (98-108); Estimated CRCL calculation 52 ml/min; Estimated Glomerular Filt Rate 60; Glucose 169 mg/dL (70-99); Magnesium 2.7 mg/dL (1.8-2.4); Osmolality Calculated 292 mOsm/kg (285-295); Potassium 4.9 mmol/L (3.5-5.1); Sodium 136 mmol/L (136-145); Total Protein 7.1 g/dL (6.4-8.2)
[2021-06-16 08:00] VITALS: BP 129/59; PULSE 80; PULSE 87; RESP 22; TEMP 36.2; O2SAT 93; O2SAT 97
[2021-06-16 08:36] LABS: Glucose Point of Care 156 mg/dl (65-105)
[2021-06-16 08:55] LABS: Band Neutrophils Percent 0 % (0-6); Lymphocytes Absolute Manual 94.88 K/mm3 (1.1-4.5); Lymphocytes Percent Manual 80 % (18-44); Monocytes Absolute Manual 2.37 K/mm3 (0.1-0.90); Monocytes Percent Manual 2 % (3-9); Neutrophils Absolute Manual 21.34 K/mm3 (1.3-6.7); Neutrophils Percent Manual 18 % (46-73); Platelet Estimate Adequate (Adequate); Total Cells Counted 100
[2021-06-16] MEDS: UMECLIDINIUM BROMIDE 62.5 MCG ELLIPTA 1 PUFF INHALATION (09:00)
[2021-06-16] MEDS: DOCUSATE SODIUM 100 MG CAPSULE PO ×2 (09:01→17:30)
[2021-06-16] MEDS: BENZONATATE 100 MG CAPSULE 200 MG PO ×3 (09:01→18:00)
[2021-06-16] MEDS: guaiFENesin 12 HR 600 MG TABCR 1200 MG PO ×2 (09:01→21:10)
[2021-06-16 09:02] VITALS: PULSE 87
[2021-06-16] MEDS: PRAVASTATIN SODIUM 20 MG TABLET PO (09:02)
[2021-06-16] MEDS: METOPROLOL TARTRATE 50 MG TAB PO (09:02)
[2021-06-16] MEDS: ALBUTEROL SULFATE (*SP) INHALER 2 PUFF INHALATION ×4 (09:04→21:09)
[2021-06-16 09:20] LABS: Base Excess ABG -0.2 mmol/L (0-2); HCO3 ABG 22.4 mmol/L (23-29); Oxygen Content ABG 15.6 %vol (16.0-22.0); Oxyhemoglobin 91.6 % (94-100); PCO2 ABG 30.5 mmHg (35-45); PO2 ABG 60.8 mmHg (75-85); Total Hemoglobin 12.1 g/dL (12.0-18.0); pH ABG 7.48 (7.35-7.45)
[2021-06-16 09:22] LABS: Device HIGH FLOW NASAL CANN; Modified Allen's Test Pass; Site Drawn RIGHT RADIAL
[2021-06-16 09:45] VITALS: PULSE 85; RESP 22; O2SAT 99
[2021-06-16 11:41] LABS: Glucose Point of Care 144 mg/dl (65-105)
[2021-06-16 11:47] LABS: Base Excess ABG -1.9 mmol/L (0-2); HCO3 ABG 21.1 mmol/L (23-29); Oxygen Content ABG 16.6 %vol (16.0-22.0); Oxygen Saturation ABG 97.3 % (95-97); Oxyhemoglobin 96.9 % (94-100); PCO2 ABG 30.5 mmHg (35-45); PO2 ABG 102.6 mmHg (75-85); Total Hemoglobin 12.1 g/dL (12.0-18.0); pH ABG 7.46 (7.35-7.45)
[2021-06-16 11:51] LABS: Device HIGH FLOW THERAPY; Fractional Inspired Oxygen 90 %; Modified Allen's Test Pass; Site Drawn RIGHT RADIAL
--- NOTE | 2021-06-16 12:34 | PC.NURSE ---
CTA chest completed, back to room remains on high flow oxygen 55L 90% FIO2
--- NOTE | 2021-06-16 13:16 | P.PNIM_ITS ---
Progress Note: A&P Assessment and Plan (1) COVID-19: Code(s): U07.1 - COVID-19 <Rizwan Rodgers JULIANO Aponte - Last Filed: 06/16/21 13:32> Status: Acute <Rizwan CastelanRAJESH brady-C - Last Filed: 06/16/21 13:32> Assessment and Plan: * Continue remdesivir with dexamethasone inhalers Tessalon Perles in guaifenesin * X-ray indicate Covid pneumonia * Remain on isolation * Patient has not been vaccinated * Continue oxygen supplement 06/15/2021 4.5 L/min NC with SpO2 90-94%, contacted his oncologist for recommendations. 06/16/2021 Currently HFNC 55L/min and 90%, Improved ABG, called multiple hospitals, [facility] was able to accept on a wait list basis with Dr. Rodrigez and Dr. Blank accepting. <Rizwan DiggsCUONG ParadaC - Last Filed: 06/16/21 13:32> (2) Diabetes mellitus: Code(s): E11.9 - Type 2 diabetes mellitus without complications <Rizwan DiggsAiden Aponte APN-C - Last Filed: 06/16/21 13:32> Status: Acute <Rizwan Rodgers RAJESH Aponte-C - Last Filed: 06/16/21 13:32> Assessment and Plan: * Blood sugar less than 300 * Continue Accu-Chek sliding scale and hypoglycemic protocol * Continue diabetic diet * Will adjust medication as needed 06/15/2021 elevated 300, Pt taking Decadron 06/16/2021 Glucose 144-282, still taking Decadron, no changes at this time. <Rizwan DiggsCUONG ParadaC - Last Filed: 06/16/21 13:32> (3) Community acquired pneumonia: Qualifiers: Laterality: unspecified laterality Qualified Code(s): J18.9 - Pneumonia, unspecified organism <Rizwan DiggsCUONG ParadaC - Last Filed: 06/16/21 13:32> Code(s): J18.9 - Pneumonia, unspecified organism <Rizwan CaterinaAiden Aponte APN-C - Last Filed: 06/16/21 13:32> Status: Acute <JULIANO Jasso - Last Filed: 06/16/21 13:32> Assessment and Plan: * Continue azithromycin and Rocephin day 1 * WBCs 83> 65 more than likely due to leukemia * Blood culture pending 06/15/2021 PCT was obtained as a send out lab, currently will continue with Azithromycin and Rocephin 06/16/2021 Continue with Azithromycin and Rocephin, respiratory status is declining, see above undeer COVID-19 <JULIANO Jasso - Last Filed: 06/16/21 13:32> (4) Leukemia: Qualifiers: Leukemia Active/Remission status: without remission Leukemia type: unspecified Qualified Code(s): C95.90 - Leukemia, unspecified not having achieved remission <JULIANO Jasso - Last Filed: 06/16/21 13:32> Code(s): C95.90 - Leukemia, unspecified not having achieved remission <JULIANO Jasso - Last Filed: 06/16/21 13:32> Status: Acute <JULIANO Jasso - Last Filed: 06/16/21 13:32> Assessment and Plan: * Follow-up with oncologist <JULIANO Jasso - Last Filed: 06/16/21 13:32> Additional Plan 70-year-old male with CAD, CLL was admitted for acute hypoxic respiratory failure secondary to COVID pneumonia. He was on Decadron and remdesivir. He developed worsening shortness of breath following which his FiO2 was increased to a non-rebreather mask. Will continue to monitor his respiratory status. Would attempt to transfer him to a facility with ICU /ventilatory support. <JULIANO Jasso - Last Filed: 06/16/21 13:32> Subjective Date/time seen: 06/16/21 13:16 Morning report indicated that the Pt had a transition from 4.5 L/min NC to NRB @ 15 L/min and after evaluation of this Pt I placed him on HFNC with current settings of 55L/min and 90%. Pt speaks in 1-2 word sentences and starts with labored breathing as he starts talking. I explained to him t
--- NOTE | 2021-06-16 13:16 | PM.IMPN ---
Progress Note: A&P Assessment and Plan (1) COVID-19: Code(s): U07.1 - COVID-19 <Rizwan DiggsCUONG ParadaC - Last Filed: 06/16/21 13:32> Status: Acute <Rizwan Rodgers RAJESH Aponte-C - Last Filed: 06/16/21 13:32> Assessment and Plan: Continue remdesivir with dexamethasone inhalers Tessalon Perles in [facility] X-ray indicate Covid pneumonia Remain on isolation Patient has not been vaccinated Continue oxygen supplement 06/15/2021 4.5 L/min NC with SpO2 90-94%, contacted his oncologist for recommendations. 06/16/2021 Currently HFNC 55L/min and 90%, Improved ABG, called multiple hospitals, [facility] was able to accept on a wait list basis with Dr. Rodrigez and Dr. Blank accepting. <CUONG JassoC - Last Filed: 06/16/21 13:32> (2) Diabetes mellitus: Code(s): E11.9 - Type 2 diabetes mellitus without complications <Rizwan CaterinaAiden Aponte APN-C - Last Filed: 06/16/21 13:32> Status: Acute <Rizwan DiggsAiden Aponte APN-C - Last Filed: 06/16/21 13:32> Assessment and Plan: Blood sugar less than 300 Continue Accu-Chek sliding scale and hypoglycemic protocol Continue diabetic diet Will adjust medication as needed 06/15/2021 elevated 300, Pt taking Decadron 06/16/2021 Glucose 144-282, still taking Decadron, no changes at this time. <Rizwan CaterinaCUONG ParadaC - Last Filed: 06/16/21 13:32> (3) Community acquired pneumonia: Qualifiers: Laterality: unspecified laterality Qualified Code(s): J18.9 - Pneumonia, unspecified organism <Rizwan CaterinaAiden Aponte APN-C - Last Filed: 06/16/21 13:32> Code(s): J18.9 - Pneumonia, unspecified organism <Rizwan CaterinaAiden Aponte APN-C - Last Filed: 06/16/21 13:32> Status: Acute <Rizwan CaterinaAiden Aponte APN-C - Last Filed: 06/16/21 13:32> Assessment and Plan: Continue azithromycin and Rocephin day 1 WBCs 83> 65 more than likely due to leukemia Blood culture pending 06/15/2021 PCT was obtained as a send out lab, currently will continue with Azithromycin and Rocephin 06/16/2021 Continue with Azithromycin and Rocephin, respiratory status is declining, see above undeer COVID-19 <JULIANO Jasso - Last Filed: 06/16/21 13:32> (4) Leukemia: Qualifiers: Leukemia Active/Remission status: without remission Leukemia type: unspecified Qualified Code(s): C95.90 - Leukemia, unspecified not having achieved remission <JULIANO Jasso - Last Filed: 06/16/21 13:32> Code(s): C95.90 - Leukemia, unspecified not having achieved remission <JULIANO Jasso - Last Filed: 06/16/21 13:32> Status: Acute <JULIANO Jasso - Last Filed: 06/16/21 13:32> Assessment and Plan: Follow-up with oncologist <JULIANO Jasso - Last Filed: 06/16/21 13:32> Additional Plan 70-year-old male with CAD, CLL was admitted for acute hypoxic respiratory failure secondary to COVID pneumonia. He was on Decadron and remdesivir. He developed worsening shortness of breath following which his FiO2 was increased to a non-rebreather mask. Will continue to monitor his respiratory status. Would attempt to transfer him to a facility with ICU /ventilatory support. <JULIANO Jasso - Last Filed: 06/16/21 13:32> Subjective Date/time seen: 06/16/21 13:16 Morning report indicated that the Pt had a transition from 4.5 L/min NC to NRB @ 15 L/min and after evaluation of this Pt I placed him on HFNC with current settings of 55L/min and 90%. Pt speaks in 1-2 word sentences and starts with labored breathing as he starts talking. I explained to him this AM that since hospitals are using wait lists that it would be de luna to get him on a wait list since his oxygen demand is increasing. He agreed and calls were made to several facilities. Currently he has been accepted at [facility] under Dr. Rodrigez with register in chancery Dr. Blank. I spoke with the Pt regarding the next steps which include CPAP, BiPA
[2021-06-16] MEDS: ENOXAPARIN 40 MG/0.4 ML SYRINGE SUB-Q (13:55)
[2021-06-16 18:54] LABS: Glucose Point of Care 200 mg/dl (65-105)
[2021-06-16 21:09] LABS: Glucose Point of Care 265 mg/dl (65-105)
[2021-06-16] MEDS: INSULIN DETEMIR 100 UNITS/ML 130 UNITS SUB-Q (21:10)
[2021-06-16] MEDS: REMDESIVIR 100 MG/NS 250 ML 100 MG/250 ML BAG 250 MG IVPB (21:40)
[2021-06-17] VITALS (8 sets, daily range): BP systolic 114–140; BP diastolic 52–64; PULSE 74–99; RESP 20–33; TEMP 36.1–37.7; O2SAT 94–100
--- NOTE | 2021-06-17 05:09 | PC.NURSE ---
[facility] called for update, no beds at this time
[2021-06-17 05:18] LABS: Hematocrit 39.3 % (37.0-46.0); Hemoglobin 11.9 g/dL (12.4-15.3); Immature Platelet Fraction Pct 4.8 % (1.0-7.0); Mean Corpuscular HGB Conc 30.3 g/dL (32.0-36.0); Mean Corpuscular Hemoglobin 25.3 pg (27.0-31.0); Mean Corpuscular Volume 83.6 fL (78.0-102.0); Mean Platelet Volume 10.2 fl (8.7-11.0); Platelet Count Result 122 K/mm3 (150-420); Red Cell Distribution Width 15.9 % (11.6-14.4)
[2021-06-17 05:25] LABS: White Blood Count 97.8 K/mm3 (4.8-10.8)
--- NOTE | 2021-06-17 05:26 | PC.NURSE ---
critical WBC obtained from lab, 97.8, decreased from 06/16/21 which was 118.6
[2021-06-17 05:28] LABS: INR 1.3; Prothrombin Time 13.7 Seconds (9.50-12.10)
[2021-06-17 05:34] LABS: Alanine Aminotransferase 52 U/L (16-63); Albumin Level 3.1 g/dL (3.4-5.0); Alkaline Phosphatase 161 U/L (46-116); Anion Gap 9 mmol/L (8-16); Aspartate Amino Transferase 81 U/L (15-37); Bilirubin,Total 0.8 mg/dL (0.00-1.00); Blood Urea Nitrogen 26 mg/dL (7-18); Calcium 8.2 mg/dL (8.5-10.1); Carbon Dioxide 28 mmol/L (21-32); Chloride 99 mmol/L (98-108); Estimated CRCL calculation 60 ml/min; Estimated Glomerular Filt Rate > 60; Glucose 147 mg/dL (70-99); Magnesium 2.6 mg/dL (1.8-2.4); Osmolality Calculated 289 mOsm/kg (285-295); Potassium 4.5 mmol/L (3.5-5.1); Sodium 136 mmol/L (136-145); Total Protein 6.8 g/dL (6.4-8.2)
[2021-06-17 05:37] LABS: Band Neutrophils Percent 0 % (0-6); Basophils Percent Manual 0 % (0-1); Eosinophils Percent Manual 0 % (1-6); Lymphocytes Percent Manual 86 % (18-44); Monocytes Absolute Manual 1.95 K/mm3 (0.1-0.90); Monocytes Percent Manual 2 % (3-9); Neutrophils Absolute Manual 11.73 K/mm3 (1.3-6.7); Neutrophils Percent Manual 12 % (46-73); Platelet Estimate Adequate (Adequate)
[2021-06-17 05:38] LABS: Smudge Cells MANY
[2021-06-17] MEDS: ENOXAPARIN 40 MG/0.4 ML SYRINGE SUB-Q (08:36)
[2021-06-17] MEDS: guaiFENesin 12 HR 600 MG TABCR 1200 MG PO ×2 (08:37→20:39)
[2021-06-17] MEDS: BENZONATATE 100 MG CAPSULE 200 MG PO ×3 (08:37→16:58)
[2021-06-17] MEDS: PRAVASTATIN SODIUM 20 MG TABLET PO (08:38)
[2021-06-17] MEDS: METOPROLOL TARTRATE 50 MG TAB PO (08:38)
[2021-06-17] MEDS: ALBUTEROL SULFATE (*SP) INHALER 2 PUFF INHALATION ×4 (08:40→20:39)
[2021-06-17] MEDS: UMECLIDINIUM BROMIDE 62.5 MCG ELLIPTA 1 PUFF INHALATION (08:40)
[2021-06-17 11:59] LABS: Glucose Point of Care 81 mg/dl (65-105)
[2021-06-17] MEDS: LORazepam (*CRX) 0.5 MG TABLET PO (12:19)
--- NOTE | 2021-06-17 13:29 | PM.IMPN ---
Progress Note: A&P Assessment and Plan (1) COVID-19: Code(s): U07.1 - COVID-19 Status: Acute Assessment and Plan: Continue [facility]des[facility] Remain on isolation Patient has not been vaccinated Continue oxygen supplement 06/15/2021 4.5 L/min NC with SpO2 90-94%, contacted his oncologist for recommendations. 06/16/2021 Currently HFNC 55L/min and 90%, Improved ABG, called multiple hospitals, [facility] was able to accept on a wait list basis with Dr. Rodrigez and Dr. Blank accepting. 06/17/2021 No bed available at this time, continue on wait lists as noted in Subjective above, continue with treatment and monitoring, WBC 97.8, Hgb 11.9, Bands 11.73, Segs 12, PT/INR 13.7/1.3, Cr 1.02, eCrCl 60, eGFR > 60, AST/ALT 81/52 (2) Diabetes mellitus: Code(s): E11.9 - Type 2 diabetes mellitus without complications Status: Acute Assessment and Plan: Blood sugar less than 300 Continue Accu-Chek sliding scale and hypoglycemic protocol Continue diabetic diet Will adjust medication as needed 06/15/2021 elevated 300, Pt taking Decadron 06/16/2021 Glucose 144-282, still taking Decadron, no changes at this time. 06/17/2021 Glucose 81-265, no changes to medications at this time (3) Community acquired pneumonia: Qualifiers: Laterality: unspecified laterality Qualified Code(s): J18.9 - Pneumonia, unspecified organism Code(s): J18.9 - Pneumonia, unspecified organism Status: Acute Assessment and Plan: Continue azithromycin and Rocephin day 1 WBCs 83> 65 more than likely due to leukemia Blood culture pending 06/15/2021 PCT was obtained as a send out lab, currently will continue with Azithromycin and Rocephin 06/16/2021 Continue with Azithromycin and Rocephin, respiratory status is declining, see above under COVID-19 06/17/2021 Oxygen demand remains unchanged, continue HFNC 55/90% with SpO2 >92% at rest, continue Azithromycin and Rocephin (4) Leukemia: Qualifiers: Leukemia Active/Remission status: without remission Leukemia type: unspecified Qualified Code(s): C95.90 - Leukemia, unspecified not having achieved remission Code(s): C95.90 - Leukemia, unspecified not having achieved remission Status: Acute Assessment and Plan: Follow-up with oncologist Subjective Date/time seen: 06/17/21 13:29 Pt states that he wants to be transferred and admits he is anxious about condition. We discussed his respiratory status and the fact that he currently is not worse and is holding steady with his current HFNC settings. We discussed anxiety, oxygen demand, relaxation, and medications to aid in relaxing to help reduce oxygen demand. I reminded him that he is currently accepted at [facility] but that they are waiting for a bed to open for him. I also reminded him he was on a wait list at [facility] as well. Other hospitals were contacted as well however they were either not making a wait list or making a preferred wait list for Pts that have been seen at their facility in the past. Pt still has decreased appetite, no CP, SOB with talking but improved compared to his 1-2 word sentences yesterday that caused labored breathing quickly, no muscle or body aces, no fevers or chills, but did have a temp of 100`F this AM. Pt worried about continued decline in his condition. Review of Systems Review of Systems: All systems reviewed & are unremarkable except as noted in HPI and below Exam Const: General: cooperative, well developed, alert, awake, Physically active, ill appearing, tired appearing and uncomfortable Nutritional Appearance: average body habitus Resp: Effort & Inspection: labored (improved since yesterday), no nasal flaring, no paradoxical thoraco-abdom movements, no pursed lip breathing, no respiratory distress, no retractions, tachypneic (at times) and symmetric chest movement Auscultation: rales (b
[2021-06-17 14:38] LABS: Base Excess ABG 0.2 mmol/L (0-2); HCO3 ABG 23.7 mmol/L (23-29); Oxygen Content ABG 16.9 %vol (16.0-22.0); Oxygen Saturation ABG 98.5 % (95-97); Oxyhemoglobin 97.9 % (94-100); PCO2 ABG 34.3 mmHg (35-45); PO2 ABG 172.3 mmHg (75-85); pH ABG 7.46 (7.35-7.45)
[2021-06-17 14:40] LABS: Device HIGH FLOW THERAPY; Fractional Inspired Oxygen 90 %; Modified Allen's Test Pass; Site Drawn RIGHT RADIAL
[2021-06-17 18:38] LABS: Glucose Point of Care 137 mg/dl (65-105)
--- NOTE | 2021-06-17 19:46 | PC.NURSE ---
SPO2 dropped to 71% while patient was using urinal. level recover to 100% sitting up with tripod positioning. Sob without activity. Afebrile. sinus tach on telemetry.
--- NOTE | 2021-06-17 20:55 | PC.NURSE ---
Report called to [facility]. Patient aware of transfer to room 200.
--- NOTE | 2021-06-17 20:58 | PC.NURSE ---
Patient's son and notified of transfer and room number.
--- NOTE | 2021-06-17 21:30 | PC.NURSE ---
Zohaib Sheriff, the dye house wheel operator at [facility], called and stated [facility] ICU doctor would like to have patient intubated before transport. Dr. Anne notified and RT called in. Returned call to [facility] to let her know patient will be intubated.
--- NOTE | 2021-06-17 21:50 | PC.NURSE ---
2150 Pt brought to ER for intubation before transfer to [facility]. Explanation for intubation explained to pt per ERP and this RN. Pt agreeable to intubation and stated understanding and understands risks/benefits of intubation due to his hypoxia and deteriorating condition before he can transfer to [facility].
--- NOTE | 2021-06-17 22:31 | PC.NURSE ---
2130 Patient taken to ER for intubation via hospital bed.
--- NOTE | 2021-06-17 22:32 | PC.NURSE ---
2215 [facility] called to transport patient to [facility].
--- NOTE | 2021-06-17 23:39 | P.RRN_ITS ---
Critical Care Event Note Summary Code activated: Yes Narrative: This case had a high probability of a clinically significant, sudden, or life threatening deterioration of this patient's condition which required my full and direct attention, intervention and personal management. patient inmane jacobo intubated but according to x-ray report from portable was not in the endotracheal tube re-attempt to intubated using a glide scope were unsuccessful cords were visualized but the of tube ET tube would not advance further there was some occlusion and tube was not able to be advanced, several attempts to advance tube were unsuccessful patient had an LMA but there was occlusion and patient was not successfully oxygenated, the patient did not have a pulse at 1 point and epinephrine was given and pulse was re-established with 2 doses of epinephrine and amiodarone. Attempts at re-intubation to establish an airway were unsuccessful last resort of surgical airway was attempted but the patient went into asystole and unsuccessful to revive the patient. CPR was attempted patient was in asystole and airway could not be successfully obtained secondary to some including in the airway track. Critical care time: 75 - 104 mins
--- NOTE | 2021-06-17 23:39 | PC.NURSE ---
Addendum entered by Jeannie Paredes RN 06/18/21 02:32: note amend to dose on succinocholine...(2227 another 90 mg given IV, not 3 mg).....and Ketamine 250 mg IV given at 2306. Addendum entered by Jeannie Paredes RN 06/18/21 00:13: 2302 Pt given Amiodorone 300mg IV, ST 120 on monitor. 230 Another attempt at intubation made by ERP at this time c 6.5 ETT. Succinocholine 100mg IV, no pulse noted at 2315, PEA on monitor, compressions started, ACLS protocol followed, and 1mg Epi given IV c CPR in progress. Pulse returned at 2318, BP 175/51 and Spo2 90% c BVM and HR 140. ERP Dr Anne going to place cric due to airway obstruction and inflammation and inability to intubate. Pt back in PEA @ 2322, attempting to bag pt p cric airway was inserted, pt then in asystole at 2324 and being bagged, no return of pulse, asystole on monitor, code called at 2326. Addendum entered by Jeannie Paredes RN 06/18/21 00:09: continue c note at 2250, Spo2 @56%, pt continued to be bagged. 225 CXR showing ETT not in correct location and tube removed. Pt noted PEA on monitor, no pulse noted at this time, compressions started and ACLS protocol followed. 225 Epi 1 mg IV given and 2299 Pt noted having pulse c rate of 140, Stach on monitor and pt given 230 Original Note: Pt placed on monitor and prepped for intubation: meds given as follows: 2155 Etomidate 20mg IV, 2156 Succinocholine 50 mg IV, Pt being bagged via BMV at 100% O2, mon. shows SR, [address] Anne c 7.5 ETT, Pts. Spo2 continue to decline p intubation at 88%, CXR obtained to check placement. Call back received from radiology that radiologist reading of tube not in place. Pt extubated and continued bagging to attempt replacement. 2209 Versed 2 mg IV given, pt starting to become restless, 2214 Another Versed 4 mg IV given to relax pt and pt. continues to be bagged, 2220 Vecuronium 9mg given to sedate pt and #18 g IV inserted into Rt wrist. Tube attempting to be reinserted by Dr Anne and resistance met during insert attempt. Tube pulled and pt bagged. 2228 Another 5mg Versed given and Succinocholine 3mg given. Tube attempt c 7.0 to reinsert and unsuccessful. 2230 ETT removed and unable to reinsert, Pt being bagged mon. showing SR HR `120's. 2241 LMA inserted and pt bagged, no improvement of Spo2, Spo2 74%. 2245 LMA removed and pt being bagged c BVM in place, Spo2 increasing slightly c bagging, increased to 87% Spo2. 2248 ANother attempt made per EMS project intern in room c pt. and Dr Anne to intubate c size 6 ETT. Attempt unsuccessful, unable to pass ETT. 2250 Ketamine 250 mg IV given for sedation, pt being bagged c BMV at 100%, Spo2 at 5
--- NOTE | 2021-06-17 23:40 | PC.NURSE ---
Patient's Azalea called and RN requested that come to the ER if possible to speak in regards of patient's status.
--- NOTE | 2021-06-18 00:05 | PC.NURSE ---
Eleni5 Able to reach Emilie Kumar call forwarded to
--- NOTE | 2021-06-18 00:06 | PC.NURSE ---
2350 program supervisor at [facility] notified of patient's status.
--- NOTE | 2021-06-18 00:40 | PC.NURSE ---
Call placed per protocol to tablet tester and [facility].
[2021-06-18 00:51] LABS: Glucose Point of Care 153 mg/dl (65-105)
--- NOTE | 2021-06-18 00:51 | PC.NURSE ---
Pts son, Ronni Kumar here, ERP and this RN spoke c son about FH and family wishes for [facility] to be called, paperwork for body release signed and [facility] notified
[2021-06-24 09:52] LABS: Reference Lab Test Name PROCALCITONIN
== END 2021-06-17 23:25 | disposition expired | DRG 177 ==
LOC: CHSED 20:52 → CHS2ND 21:21
PROVIDERS: Emergency Medicine; Internal Medicine Critical Care Medicine; Nurse Practitioner; Nurse Practitioner Family; Admitting Provider Emergency Medicine; Emergency Provider Emergency Medicine; PCP Internal Medicine; Visit Provider Emergency Medicine
DX: U07.1 COVID-19 (principal); J18.9 Pneumonia, unspecified organism; C95.90 Leukemia, unspecified not having achieved remission; E11.9 Type 2 diabetes mellitus without complications; J12.82 Pneumonia due to coronavirus disease 2019; J96.01 Acute respiratory failure with hypoxia; C91.10 Chronic lymphocytic leukemia of B-cell type not having achieved remission; I46.9 Cardiac arrest, cause unspecified
CPT/HCPCS: 31500; 36415; 36600; 71045; 71250; 71275; 80053; 81001; 82565; 82805; 82948; 83605; 83735; 84145; 84460; 84484; 85025; 85027; 85055; 85610; 87040; 93005; 94640; 96361; 96365; 96375; 99285; A9270; J0171; J0282; J0330; J0456; J0696; J1100; J1650; J1815; J2250; J7030; Q9967